=== PATIENT | female | born 1955 | race Caucasian/White ===

== ENCOUNTER 2020-11-16 22:21 | Emergency (ER) | payer MEDICARE, OTHER ==
[~2020-11-16 22:21] MED LIST: ASPIRIN EC81 MG PO; CELLCEPT500 MG PO; LOPRESSOR50 MG PO; MACROBID100 MG PO; NORVASC5 MG PO; OXYCODONE HCL15 MG PO; PREDNISONE5 MG PO; PROGRAF1 MG PO; REMERON15 MG PO; REQUIP1 MG PO; ZOLOFT100 M1 PO
[2020-11-16 22:39] LABS: BASOPHIL 0.2 % (0-2); EOSINOPHIL 0.2 % (0-7); HCT 35.6 % (37.0-47.0); HGB 10.8 g/dl (12.5-16.0); LYMPHOCYTE 4.2 % (15-48); MCH 27.3 pg (25.0-31.0); MCHC 30.3 g/dL (32.0-36.0); MCV 90.1 fL (78.0-100.0); MONOCYTE 5.6 % (0-12); MPV 12.1 fL (6.0-9.5); NEUTROPHIL 88.9 % (41-80); NRBC 0; PLT 204 K/uL (150-400); RBC 3.95 M/uL (4.20-5.40); WBC 12.8 K/uL (4.0-10.5)
[2020-11-16 22:59] LABS: LACTIC ACID 0.7 mmol/L (0.4-1.9)
[2020-11-16 23:01] LABS: BILIRUBIN NEGATIVE (NEGATIVE); BLOOD TRACE-INTACT Ery/uL (NEGATIVE); CLARITY CLEAR (CLEAR); COLOR YELLOW (YELLOW); GLUCOSE (U) NORMAL (NORMAL); LEUKOCYTES 2+ Leu/uL (NEGATIVE); NITRITE NEGATIVE (NEGATIVE); PROTEIN 1+ mg/dL (NEGATIVE); SPECIFIC GRAVITY 1.025 (1.001-1.030); UROBILINOGEN 0.2 mg/dL (0.2-1.0); pH 5.5 (5.0-9.0)
[2020-11-16 23:10] LABS: ALBUMIN 3.4 g/dL (3.4-5.0); BILIRUBIN - TOTAL 0.3 mg/dL (0.2-1.0); BUN/CREAT RATIO (CALC) 18.1 RATIO; C-REACTIVE PROTEIN 9.6 mg/dL (<=0.90); CREATININE 1.49 mg/dL (0.51-0.95); GLOBULIN (CALCULATION) 3.6 g/dL; POTASSIUM 4.2 mmol/L (3.5-5.1)
[2020-11-16 23:14] LABS: URINARY WBC TNTC
[2020-11-16 23:15] LABS: BACTERIA 4+
[2020-11-16 23:56] LABS: CORONAVIRUS 2019 SARS-COV-2 NEGATIVE (NEGATIVE); INFLUENZA A NAA NEGATIVE (NEGATIVE)
[2020-11-17] MEDS ORDERED: ONDANSETRON ODT4 MG SL (02:27)
[2020-11-17] MEDS ORDERED: KEFLEX500 MG PO (02:27)
[2020-11-17] MEDS ORDERED: ANTIVERT12.5 MG PO (02:27)
== END 2020-11-17 03:35 | disposition home or self-care (01) ==
LOC: FER 22:21
PROVIDERS: Emergency Medicine Emergency Medical Services
DX: N30.00 Acute cystitis without hematuria (principal); R68.89 Other general symptoms and signs; R42 Dizziness and giddiness; I10 Essential (primary) hypertension; Z94.2 Lung transplant status; Z79.82 Long term (current) use of aspirin; Z88.0 Allergy status to penicillin; Z20.822 Contact with and (suspected) exposure to COVID-19
CPT/HCPCS: 36415; 71045; 80053; 81001; 82150; 82728; 83605; 83615; 84145; 84484; 85025; 86140; 87040; 87088; 87186; 93005; J0696; J2405; J7030; U0002

== ENCOUNTER 2021-04-20 12:08 | Emergency (ER) | payer MEDICARE, OTHER ==
[~2021-04-20 12:08] MED LIST changes: +ANTIVERT12.5 MG PO; +KEFLEX500 MG PO; +ONDANSETRON ODT4 MG SL
[2021-04-20 14:03] LABS: BASOPHIL 0.6 % (0-2); EOSINOPHIL 0.6 % (0-7); LYMPHOCYTE 5.2 % (15-48); MCHC 30.6 g/dL (32.0-36.0); MCV 88.5 fL (78.0-100.0); MONOCYTE 6.8 % (0-12); MPV 13.3 fL (6.0-9.5); NEUTROPHIL 79.9 % (41-80); PLT 156 K/uL (150-400); RBC 4.07 M/uL (4.20-5.40); RDW 14.5 % (11.5-14.0); WBC 17.3 K/uL (4.0-10.5)
[2021-04-20 14:11] LABS: NRBC 0
[2021-04-20 14:21] LABS: ALBUMIN 3.9 g/dL (3.4-5.0); BILIRUBIN - TOTAL 0.2 mg/dL (0.2-1.0); BUN/CREAT RATIO (CALC) 17.3 RATIO; CREATININE 4.46 mg/dL (0.51-0.95); GLOBULIN (CALCULATION) 3.9 g/dL; POTASSIUM 5.1 mmol/L (3.5-5.1); TOTAL PROTEIN 7.8 g/dL (6.4-8.2)
[2021-04-20 14:29] LABS: LACTIC ACID 0.5 mmol/L (0.4-1.9)
[2021-04-20 15:26] LABS: BILIRUBIN 1+ mg/dL (NEGATIVE); BLOOD 3+ Ery/uL (NEGATIVE); CLARITY CLEAR (CLEAR); COLOR YELLOW (YELLOW); GLUCOSE (U) NORMAL (NORMAL); LEUKOCYTES 1+ Leu/uL (NEGATIVE); NITRITE NEGATIVE (NEGATIVE); PROTEIN 3+ mg/dL (NEGATIVE); SPECIFIC GRAVITY 1.025 (1.001-1.030); UROBILINOGEN 0.2 mg/dL (0.2-1.0); pH 5.5 (5.0-9.0)
[2021-04-20 15:30] LABS: BACTERIA 1+
== END 2021-04-20 21:52 | disposition other institution (70) ==
LOC: FER 12:08
PROVIDERS: Emergency Medicine
DX: N17.9 Acute kidney failure, unspecified (principal); N39.0 Urinary tract infection, site not specified; R19.7 Diarrhea, unspecified; Z20.822 Contact with and (suspected) exposure to COVID-19; J44.9 Chronic obstructive pulmonary disease, unspecified; Z88.0 Allergy status to penicillin
CPT/HCPCS: 36415; 74022; 80053; 81001; 83605; 83690; 85025; 87040; 87076; 87088; 87186; J1956; J7030; Q0164; U0002

== ENCOUNTER 2021-04-30 09:07 | Emergency (ER) | payer MEDICARE, OTHER ==
[2021-04-30 09:42] LABS: BASOPHIL 0.2 % (0-2); EOSINOPHIL 1.5 % (0-7); HCT 26.5 % (37.0-47.0); HGB 7.9 g/dl (12.5-16.0); LYMPHOCYTE 7.3 % (15-48); MCH 26.8 pg (25.0-31.0); MCHC 29.8 g/dL (32.0-36.0); MCV 89.8 fL (78.0-100.0); MONOCYTE 14.1 % (0-12); MPV 11.8 fL (6.0-9.5); NEUTROPHIL 75.6 % (41-80); NRBC 0; PLT 251 K/uL (150-400); RBC 2.95 M/uL (4.20-5.40); RDW 14.9 % (11.5-14.0)
[2021-04-30 10:05] LABS: LACTIC ACID 0.6 mmol/L (0.4-1.9)
[2021-04-30 10:10] LABS: CREATININE 2.13 mg/dL (0.51-0.95); POTASSIUM 4.5 mmol/L (3.5-5.1); PRO-BNP 5598 pg/mL (<125)
[2021-04-30 10:11] LABS: ALBUMIN 2.9 g/dL (3.4-5.0); BILIRUBIN - TOTAL 0.4 mg/dL (0.2-1.0); GLOBULIN (CALCULATION) 3.5 g/dL; MAGNESIUM 1.3 mg/dL (1.8-2.4); TOTAL PROTEIN 6.4 g/dL (6.4-8.2)
[2021-04-30 10:18] LABS: INR 1.23 (0.9-1.2); PROTHROMBIN TIME 14.7 SECONDS (11.4-13.6)
[2021-04-30 10:53] LABS: BILIRUBIN 2+ mg/dL (NEGATIVE); BLOOD NEGATIVE Ery/uL (NEGATIVE); CLARITY CLEAR (CLEAR); COLOR YELLOW (YELLOW); GLUCOSE (U) NORMAL (NORMAL); LEUKOCYTES NEGATIVE Leu/uL (NEGATIVE); NITRITE NEGATIVE (NEGATIVE); PROTEIN 2+ mg/dL (NEGATIVE); SPECIFIC GRAVITY >=1.030 (1.001-1.030); UROBILINOGEN 0.2 mg/dL (0.2-1.0); pH 5.5 (5.0-9.0)
[2021-04-30 11:29] LABS: AMORPHOUS URATES CRYSTALS TRACE; URINARY WBC RARE
== END 2021-05-01 03:40 | disposition other institution (70) ==
LOC: FER 09:07
PROVIDERS: Emergency Medicine
DX: G92 Toxic encephalopathy (principal); D84.9 Immunodeficiency, unspecified; J90 Pleural effusion, not elsewhere classified; Z88.0 Allergy status to penicillin; Z88.1 Allergy status to other antibiotic agents; Z88.6 Allergy status to analgesic agent; Z94.2 Lung transplant status; Z20.822 Contact with and (suspected) exposure to COVID-19
CPT/HCPCS: 36415; 70450; 71045; 80053; 81001; 83605; 83690; 83735; 83880; 84145; 84443; 84484; 85025; 85610; 85730; 86140; 87040; 87088; 93005; J1170; J2405; J7030; U0002